=== PATIENT | male | born 1970 | race Caucasian/White ===

== ENCOUNTER 2023-05-26 09:46 | Emergency (ER) | payer BC ==
--- NOTE | 2023-05-26 11:52 | RAD REPORT ---
EXAM DESCRIPTION: USExtremity Venous [facility] Ltd05/26/2023 11:33 am CLINICAL HISTORY: Right leg pain COMPARISON: None. FINDINGS: Right common femoral, superficial femoral, greater saphenous, popliteal and right posterio r tibial veins are compressible and demonstrate augmentation. Doppler demonstrates good flow. Grayscale, color and spectral analysis performed on all vessels IMPRESSION: No evidence of deep venous thrombosis involving the right lower extremity.
--- NOTE | 2023-05-26 11:55 | ER ---
Nurse's Notes [facility] Name: Jonel Butt Age: 53 yrs Sex: Male : 1970 Arrival Date: 05/26/2023 Time: 09:46 Bed 4 Private MD: Diagnosis: Pain in right leg Presentation: 05/26 10:13 Chief complaint: Patient states: right calf injury a week ago, has been swollen and iw painful, now his foot is swollen too m he was playing football. Coronavirus screen: At this time, the client does not indicate any symptoms associated with coronavirus-19. Ebola Screen: Patient negative for fever greater than or equal to 101.5 degrees Fahrenheit, and additional compatible Ebola Virus Disease symptoms Patient denies exposure to infectious person. Patient denies travel to an Ebola-affected area in the 21 days before illness onset. No symptoms or risks identified at this time. Initial Sepsis Screen: Does the patient meet any 2 criteria? No. Patient's initial sepsis screen is negative. Does the patient have a suspected source of infection? No. Patient's initial sepsis screen is negative. Risk Assessment: Do you want to hurt yourself or someone else? Patient reports no desire to harm self or others. Onset of symptoms was May 20, 2023. 10:13 Method Of Arrival: Wheelchair iw 10:13 Acuity: FLY 3 iw Historical: - Allergies: 10:15 No Known Allergies; iw - Home Meds: 10:15 Janumet oral [Active]; Farxiga 10 mg oral tablet daily [Active]; atorvastatin 40 mg iw oral tablet daily [Active]; glimepiride 4 mg Oral tablet daily [Active]; lisinopril 20 mg Oral tablet daily [Active]; fenofibrate micronized oral [Active]; 10:18 hydrocodone-acetaminophen Oral [Active]; iw - PMHx: 10:15 Diabetes mellitus; Hypercholesterolemia; iw - Immunization history:: Adult Immunizations unknown. - Social history:: Smoking status: . - Family history:: not pertinent. Screenin:52 [facility] ED Fall Risk Assessment (Adult) History of falling in the last 3 months, db including since admission No falls in past 3 months (0 pts) Confusion or Disorientation No (0 pts) Intoxicated or Sedated No (0 pts) Impaired Gait No (0 pts) Mobility Assist Device Used No (0 pt) Altered Elimination No (0 pt) Score/Fall Risk Level 0 - 2 = Low Risk Oriented to surroundings, Maintained a safe environment. Abuse screen: Denies threats or abuse. Denies injuries from another. Nutritional screening: No deficits noted. Tuberculosis screening: No symptoms or risk factors identified. Assessment: 10:52 Reassessment: Patient appears in no apparent distress at this time. Patient and/or db family updated on plan of care and expected duration. Pain level reassessed. Patient is alert, oriented x 3, equal unlabored respirations, skin warm/dry/pink. General: Appears in no apparent distress. comfortable, Behavior is calm, cooperative. Pain: Complains of pain in right leg. Neuro: Level of Consciousness is awake, alert, obeys commands, Oriented to person, place, time, situation. Respiratory: Airway is patent Respiratory effort is even, unlabored, Respiratory pattern is regular, symmetrical. Musculoskeletal: Swelling present in right leg. 11:14 Reassessment: agricultural technical officer is at patient bedside. db 12:04 Reassessment: Patient appears in no apparent distress at this time. No changes from vg1 previously documented assessment. Patient and/or family updated on plan of care and expected duration. Pain level reassessed. Patient is alert, oriented x 3, equal unlabored respirations, skin warm/dry/pink. Vital Signs: 10:13 BP 141 / 84; Pulse 99; Resp 16; Temp 98; Pulse Ox 99% on R/A; Weight 106.59 kg; Height iw 5 ft. 10 in. ; Pain 6/10; 10:50 BP 127 / 85; Pulse 88; Resp 16; Pulse Ox 95% on R/A; db 10:13 Body Mass Index 33.72 (106.59 kg, 177.8 cm) iw 10:13 Pain Scale: Adult iw ED Course: 09:49 Patient arrived in ED. im 09:54 Wilver Foreman MD is Attending Physician. rt 10:15 Triage completed. iw 10:19 Arm band placed on. iw 10:51 Rosey Sam, RN is Primary Nurse. db 10:56 Patient has correct armband on for positive identification. Bed in low position. Call db light in reach. Side rails up X 1. Pulse ox on. NIBP on. 11:35 Extremity Venous Uni Ltd US In Process Unspecified. EDMS 12:04 No provider procedures requiring assistance completed. Patient did not have IV access vg1 during this emergency room visit. Administered Medications: No medications were administered Medication: 12:04 VIS not applicable for this client. vg1 Outcome: 11:54 Discharge ordered by . rt 12:04 Discharged to home via wheelchair, with family. vg1 12:04 Condition: good 12:04 Discharge instructions given to patient, Instructed on discharge instructions, follow up and referral plans. Demonstrated understanding of instructions, follow-up care. 12:04 Patient left the ED. vg1 Signatures: Dispatcher [employer] EDMS Dahlia Mathew, RN Violet Nice RN RN vg1 Rosey Sam, TJ RN Wilver Em MD MD rt Nani Lees im
--- NOTE | 2023-05-26 11:55 | EDPHYS ---
Physician Documentation [facility] Name: Jonel Butt Age: 53 yrs Sex: Male : 1970 Arrival Date: 05/26/2023 Time: 09:46 Bed 4 Private MD: ED Physician Wilver Foreman HPI: 05/26 11:09 This 53 yrs old Male presents to ER via Wheelchair with complaints of Leg Injury - rt right. 11:09 1 week ago, the patient sustained an injury to the right calf while playing football. rt Patient states that he felt a tear to the Area. He reported significant swelling at that time. Was seen by an urgent care, told that he may have a blood clot. Did not get evaluated for DVT at that time. States that the swelling on the calf has improved, however, he now has some swelling and bruising around the ankle. He denies any knee, ankle injury. Denies other acute complaints, symptoms are moderate severity, aching nature, nonradiating, no other aggravating or alleviating factors. Historical: - Allergies: 10:15 No Known Allergies; iw - Home Meds: 10:15 Janumet oral [Active]; Farxiga 10 mg oral tablet daily [Active]; atorvastatin 40 mg iw oral tablet daily [Active]; glimepiride 4 mg Oral tablet daily [Active]; lisinopril 20 mg Oral tablet daily [Active]; fenofibrate micronized oral [Active]; 10:18 hydrocodone-acetaminophen Oral [Active]; iw - PMHx: 10:15 Diabetes mellitus; Hypercholesterolemia; iw - Immunization history:: Adult Immunizations unknown. - Social history:: Smoking status: . - Family history:: not pertinent. ROS: 11:09 Constitutional: Negative for fever, chills, and weight loss, Eyes: Negative for injury, rt pain, redness, and discharge, Cardiovascular: Negative for chest pain, palpitations, and edema, Respiratory: Negative for shortness of breath, cough, wheezing, and pleuritic chest pain, Abdomen/GI: Negative for abdominal pain, nausea, vomiting, diarrhea, and constipation, Skin: Negative for injury, rash, and discoloration, Neuro: Negative for headache, weakness, numbness, tingling, and seizure, Psych: Negative for depression, anxiety, suicide ideation, homicidal ideation, and hallucinations. 11:09 MS/extremity: Positive for pain, swelling. Exam: 11:09 Constitutional: This is a well developed, well nourished patient who is awake, alert, rt and in no acute distress. Head/Face: Normocephalic, atraumatic. Chest/axilla: Normal chest wall appearance and motion. Nontender with no deformity. No lesions are appreciated. Cardiovascular: Regular rate and rhythm with a normal S1 and S2. No gallops, murmurs, or rubs. Normal PMI, no JVD. No pulse deficits. Respiratory: Lungs have equal breath sounds bilaterally, clear to auscultation and percussion. No rales, rhonchi or wheezes noted. No increased work of breathing, no retractions or nasal flaring. Abdomen/GI: Soft, non-tender, with normal bowel sounds. No distension or tympany. No guarding or rebound. No evidence of tenderness throughout. Skin: Warm, dry with normal turgor. Normal color with no rashes, no lesions, and no evidence of cellulitis. Neuro: Awake and alert, GCS 15, oriented to person, place, time, and situation. Cranial nerves II-XII grossly intact. Motor strength 5/5 in all extremities. Sensory grossly intact. Cerebellar exam normal. Normal gait. Psych: Awake, alert, with orientation to person, place and time. Behavior, mood, and affect are within normal limits. 11:09 Musculoskeletal/extremity: Tenderness at the area of the left calf, moderate swelling noted, compartments are soft. There is edema to the right ankle with a small amount of bruising. Patient is able to dorsiflex the foot. Pulses, motor, sensation are intact. Vital Signs: 10:13 BP 141 / 84; Pulse 99; Resp 16; Temp 98; Pulse Ox 99% on R/A; Weight 106.59 kg; Height iw 5 ft. 10 in. ; Pain 6/10; 10:50 BP 127 / 85; Pulse 88; Resp 16; Pulse Ox 95% on R/A; db 10:13 Body Mass Index 33.72 (106.59 kg, 177.8 cm) iw 10:13 Pain Scale: Adult iw MDM: 10:29 Patient medically screened. rt 19:07 Differential diagnosis: DVT, tendinitis, muscle tear. Data reviewed: vital signs, rt nurses notes, radiologic studies. Counseling: I had a detailed discussion with the patient and/or guardian regarding: the historical points, exam findings, and any diagnostic results supporting the discharge/admit diagnosis, radiology results, Patient to follow-up with orthopedics and primary care for further evaluation. Is able to dorsiflex, do not suspect complete tear. 05/26 10:29 Order name: Extremity Venous [facility] US; Complete Time: 11:52 rt Administered Medications: No medications were administered Disposition Summary: 05/26/23 11:54 Discharge Ordered Location: Home rt Problem: new rt Symptoms: are unchanged rt Condition: Stable rt Diagnosis - Pain in right leg rt Followup: rt - With: Private Physician - When: 2 - 3 days - Reason: Discharge Instructions: - Discharge Summary Sheet rt - Musculoskeletal Pain rt Forms: - Medication Reconciliation Form rt - Thank You Letter rt - Antibiotic Education rt - Prescription Opioid Use rt - Patient Portal Instructions rt Signatures: Dispatcher [employer] Dahlia Garvin RN RN iw [place], Ryan, MD MD rt
[2023-05-26 12:09] VITALS: TEMP 98
[2023-05-26 12:10] VITALS: BP 127/85; O2SAT 95
== END 2023-05-26 12:04 | disposition home or self-care (01) ==
LOC: ER 09:46
DX: M79.604 Pain in right leg (principal)
CPT/HCPCS: 93971; 99283